=== PATIENT | female | born 1955 ===

== ENCOUNTER → 2019-04-21 | Outpatient (CLI) | payer OTHER | LOC: LAB 13:05 → LAB SHORT 13:05 | DX: R35.0 Frequency of micturition (principal) | CPT/HCPCS: 87077; 87086; 87186 ==

== ENCOUNTER → 2021-04-29 | Outpatient (CLI) | payer MEDICARE, OTHER | LOC: LAB 12:35 → LAB SHORT 12:35 | DX: R30.0 Dysuria (principal) | CPT/HCPCS: 87077; 87086; 87186 ==